=== PATIENT | male | born 1960 | race Caucasian/White ===

== ENCOUNTER 2019-11-08 17:31 | Emergency (ER) | payer OTHER ==
[2019-11-08] MEDS ORDERED: Diphtheria,Pertussis(Acell),Tetanus Vaccine 0.5 ML SDV IM ONE (18:45)
[2019-11-08] MEDS ORDERED: Bacitracin Oint 1 GM U/D Packet TOP ONE (18:47)
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
--- NOTE | 2019-11-11 10:20 | CR ---
Hand Comp Min 3V Rt CLINICAL HISTORY: Pain, injury FINDINGS: There is no acute fracture or dislocation of the hand. There is soft tissue swelling of the middle finger. There is some mild osteophytic change at the first carpometacarpal junction. Impression: No acute findings
--- NOTE | 2019-11-11 10:22 | CR ---
Ankle Min 3V Lt CLINICAL HISTORY: Injury, pain FINDINGS: The soft tissues are mildly swollen. No acute fracture or dislocation is noted. Ankle mortise is intact. Articular surfaces are smooth. There is a calcaneal spur Impression: No fracture or dislocation.
== END 2019-11-08 20:33 | disposition home or self-care (01) ==
LOC: JP.ED 17:31
DX: S61.213A Laceration without foreign body of left middle finger without damage to nail, initial encounter (principal); S96.912A Strain of unspecified muscle and tendon at ankle and foot level, left foot, initial encounter; I10 Essential (primary) hypertension; Z87.891 Personal history of nicotine dependence; Z79.899 Other long term (current) drug therapy; Z23 Encounter for immunization; V49.50XA Passenger injured in collision with unspecified motor vehicles in traffic accident, initial encounter
CPT/HCPCS: 12002; 73130; 73610; 90471; 90715; 99284; J2001